=== PATIENT | female | born 1960 ===

== ENCOUNTER 2019-02-28 07:21 | Outpatient (CLI) | payer OTHER ==
[~2019-02-28 07:21] MED LIST: DALMANE30 MG PO; ETODOLAC200 MG PO; KLONOPIN2 MG/TAB PO; MOBIC15 MG PO; NORFLEX100 MG PO; ORPH100T PO; ULTRACET MC
== END 2019-02-28 07:29 | disposition home or self-care (01) ==
LOC: SONOGRAMA 07:21
DX: E04.1 Nontoxic single thyroid nodule (principal)

== ENCOUNTER 2019-07-20 22:06 | Emergency (ER) | payer OTHER ==
[~2019-07-20] VITALS: Ht 170.2 cm; Wt 79.4 kg
[2019-07-20] MEDS ORDERED: JANUMET 50-5001 EACH (22:19)
[2019-07-21] MEDS ORDERED: DICY20TA PO (02:58)
[2019-07-21] MEDS ORDERED: ZANTAC300 MG PO (02:58)
[2019-07-21] MEDS ORDERED: CIPRO500 MG PO (02:58)
== END 2019-07-21 03:10 | disposition home or self-care (01) ==
LOC: ER 22:06
DX: K52.89 Other specified noninfective gastroenteritis and colitis (principal); E86.0 Dehydration

== ENCOUNTER 2019-07-21 22:32 | Inpatient (IN) | payer OTHER ==
[~2019-07-21] VITALS: Ht 170.2 cm; Wt 74.8 kg
[~2019-07-21 22:32] MED LIST changes: +CIPRO500 MG PO; +DICY20TA PO; +JANUMET 50-5001 EACH; +ZANTAC300 MG PO
[2019-07-23] MEDS ORDERED: OMEPRAZOLE20 MG PO (15:06)
[2019-07-23] MEDS ORDERED: LAMICTAL150 MG PO (15:06)
[2019-07-23] MEDS ORDERED: CLONAZEPAM1 MG PO (15:06)
[2019-07-23] MEDS ORDERED: ARIPIPRAZOLE15 MG PO (15:07)
[2019-07-23] MEDS ORDERED: ATORVASTATIN CA40 MG PO (15:07)
[2019-07-23] MEDS ORDERED: DULOXETINE HCL60 MG PO (15:07)
== END 2019-07-24 13:37 | disposition home or self-care (01) | DRG 392 ==
LOC: ER 22:32 → SEC-K 07-22 11:20 → MEDJ 07-22 11:20
PROVIDERS: ADMIT Internal Medicine
DX: K52.89 Other specified noninfective gastroenteritis and colitis (principal); E86.0 Dehydration; E87.8 Other disorders of electrolyte and fluid balance, not elsewhere classified; M79.7 Fibromyalgia; E11.9 Type 2 diabetes mellitus without complications; Z79.4 Long term (current) use of insulin